=== PATIENT | male | born 1980 | race Caucasian/White ===

== ENCOUNTER 2016-10-31 12:57 | Emergency (ER) | payer OTHER ==
[2016-10-31] MEDS ORDERED: NAPROSYN500 MG PO (14:11)
[2016-10-31] MEDS ORDERED: PREDNISONE50 MG PO (14:11)
[2016-10-31] MEDS ORDERED: VALIUM5 MG PO (14:11)
== END 2016-10-31 14:17 | disposition home or self-care (01) ==
LOC: ED 12:57
DX: M54.5 Low back pain (principal); F17.200 Nicotine dependence, unspecified, uncomplicated